=== PATIENT | female | born 1940 | race Asian ===

== ENCOUNTER → 2016-12-23 | Outpatient (CLI) | payer OTHER ==
[~2016-12-23] MED LIST: AMOX250C4 PO; ATOR10TA84 PO; CALC-590 PO; METO-325 PO
== END | disposition home or self-care (01) ==
LOC: RADPV 12:22
PROVIDERS: ATTEND Internal Medicine
DX: M19.072 Primary osteoarthritis, left ankle and foot (principal); M25.472 Effusion, left ankle; M25.775 Osteophyte, left foot; M79.89 Other specified soft tissue disorders

== ENCOUNTER → 2017-02-24 | Outpatient (CLI) | payer OTHER ==
[~2017-02-24] MED LIST changes: -METO-325 PO; +METO-391 PO
== END | disposition home or self-care (01) ==
LOC: RADPV 11:46
PROVIDERS: ATTEND Internal Medicine
DX: J98.11 Atelectasis (principal); R91.8 Other nonspecific abnormal finding of lung field; I70.0 Atherosclerosis of aorta
CPT/HCPCS: 71020